=== PATIENT | female | born 1950 | race Caucasian/White ===

== ENCOUNTER 2023-03-19 10:21 | Outpatient (CLI) | payer SELFPAY ==
[2023-03-19 10:44] VITALS: BP 139/64; PULSE 96; RESP 16; TEMP 36.9; O2SAT 98; BMI 23.3
[2023-03-19 11:18] VITALS: BP 133/60; PULSE 93; RESP 16; TEMP 36.7; O2SAT 100
[2023-03-19 12:18] VITALS: BP 143/64; PULSE 87; RESP 16; TEMP 36.9; O2SAT 99
[2023-03-19 13:31] VITALS: BP 138/61; PULSE 87; RESP 16; TEMP 37.1
== END 2023-03-19 10:22 | disposition home or self-care (01) ==
PROVIDERS: PCP Student in an Organized Health Care Education/Training Program; Referring Provider Internal Medicine Hematology & Oncology; Visit Provider Internal Medicine Hematology & Oncology
DX: D64.9 Anemia, unspecified (principal)
CPT/HCPCS: 36430; 86850; 86870; 86900; 86901; 86902; J7040; P9016; A4216

== ENCOUNTER 2023-05-29 09:10 | Outpatient (CLI) | payer OTHER, SELFPAY ==
[2023-05-29] VITALS (7 sets, daily range): BP systolic 116–142; BP diastolic 49–59; PULSE 94–110; RESP 12–16; TEMP 36.2–36.3; O2SAT 95–99; BMI 23.2
[2023-05-29] MEDS: 0.9% NaCl Peripheral Flush Adult/Peds IV (09:40)
== END 2023-05-29 09:11 | disposition home or self-care (01) ==
LOC: MEDOUTP 09:15
PROVIDERS: PCP Student in an Organized Health Care Education/Training Program; Referring Provider Internal Medicine Hematology & Oncology; Visit Provider Internal Medicine Hematology & Oncology
DX: D46.20 Refractory anemia with excess of blasts, unspecified (principal)
CPT/HCPCS: 36430; 86850; 86870; 86900; 86901; 86902; 86905; 86920; 86922; J7040; P9016; A4216

== ENCOUNTER 2023-06-19 08:58 | Outpatient (CLI) | payer OTHER, SELFPAY ==
[2023-06-19] VITALS (7 sets, daily range): BP systolic 112–141; BP diastolic 50–58; PULSE 91–100; RESP 16; TEMP 36.5–36.8; O2SAT 99–100
[2023-06-19] MEDS: 0.9% NaCl Peripheral Flush Adult/Peds IV (09:50)
== END 2023-06-19 08:59 | disposition home or self-care (01) ==
LOC: MEDOUTP 08:59
PROVIDERS: PCP Student in an Organized Health Care Education/Training Program; Referring Provider Internal Medicine Hematology & Oncology; Visit Provider Internal Medicine Hematology & Oncology
DX: D46.20 Refractory anemia with excess of blasts, unspecified (principal)
CPT/HCPCS: 36430; 86850; 86870; 86900; 86901; 86902; 86920; 86922; J7040; P9016; A4216

== ENCOUNTER 2023-07-04 07:51 | Outpatient (CLI) | payer OTHER, SELFPAY ==
[2023-07-04] MEDS: 0.9% NaCl Peripheral Flush Adult/Peds IV (08:11)
[2023-07-04 08:12] VITALS: BP 145/50; PULSE 99; RESP 16; TEMP 36.9; O2SAT 98
[2023-07-04 09:02] VITALS: BP 107/44; PULSE 93; RESP 16; TEMP 36.7
[2023-07-04 10:02] VITALS: BP 118/47; PULSE 89; RESP 16; TEMP 36.6; O2SAT 98
[2023-07-04 10:55] VITALS: BP 112/46; PULSE 78; RESP 16; TEMP 36.9
[2023-07-04 11:55] VITALS: BP 115/48; PULSE 86; RESP 16; TEMP 36.8
[2023-07-04 12:34] VITALS: BP 126/50; PULSE 89; RESP 16; TEMP 37
== END 2023-07-04 07:52 | disposition home or self-care (01) ==
LOC: MEDOUTP 07:52
PROVIDERS: PCP Student in an Organized Health Care Education/Training Program; Referring Provider Internal Medicine Hematology & Oncology; Visit Provider Internal Medicine Hematology & Oncology
DX: D46.20 Refractory anemia with excess of blasts, unspecified (principal)
CPT/HCPCS: 36430; 86850; 86870; 86900; 86901; 86902; 86920; 86922; J7040; P9016; A4216

== ENCOUNTER 2023-07-11 07:55 | Outpatient (CLI) | payer OTHER, SELFPAY ==
[2023-07-11] VITALS (7 sets, daily range): BP systolic 115–143; BP diastolic 49–58; PULSE 75–104; RESP 16; TEMP 36–36.4; O2SAT 97–100; BMI 23.2
[2023-07-11] MEDS: 0.9% NaCl Peripheral Flush Adult/Peds IV (08:19)
== END 2023-07-11 07:56 | disposition home or self-care (01) ==
LOC: MEDOUTP 07:55
PROVIDERS: PCP Student in an Organized Health Care Education/Training Program; Referring Provider Internal Medicine Hematology & Oncology; Visit Provider Internal Medicine Hematology & Oncology
DX: D46.20 Refractory anemia with excess of blasts, unspecified (principal)
CPT/HCPCS: 36430; 86850; 86870; 86900; 86901; 86902; 86920; 86921; 86922; J7040; P9016; A4216

== ENCOUNTER 2023-07-24 08:30 | Outpatient (CLI) | payer OTHER, SELFPAY ==
[2023-07-24 09:05] VITALS: BP 116/50; PULSE 107; RESP 16; TEMP 36.6; O2SAT 98
[2023-07-24 09:39] VITALS: BP 123/46; PULSE 105; RESP 16; TEMP 36.8; O2SAT 99
[2023-07-24 10:44] VITALS: BP 118/53; PULSE 98; RESP 16; TEMP 36.3; O2SAT 100
[2023-07-24 11:49] VITALS: BP 128/49; PULSE 102; RESP 16; TEMP 36.6; O2SAT 98
[2023-07-24 12:49] VITALS: BP 115/50; PULSE 96; RESP 16; TEMP 36.8
== END 2023-07-24 08:31 | disposition home or self-care (01) ==
LOC: MEDOUTP 08:30
PROVIDERS: PCP Student in an Organized Health Care Education/Training Program; Referring Provider Internal Medicine Hematology & Oncology; Visit Provider Internal Medicine Hematology & Oncology
DX: D46.20 Refractory anemia with excess of blasts, unspecified (principal)
CPT/HCPCS: 36430; 86850; 86870; 86880; 86900; 86901; 86920; 86922; J7040; P9016; A4216

== ENCOUNTER 2023-08-01 08:24 | Outpatient (CLI) | payer OTHER, SELFPAY ==
[2023-08-01 08:31] VITALS: BP 149/48; PULSE 107; RESP 16; TEMP 36.7; O2SAT 99
[2023-08-01 09:30] VITALS: BP 114/56; PULSE 95; RESP 16; TEMP 36.6; O2SAT 99
[2023-08-01 10:30] VITALS: BP 123/57; PULSE 94; RESP 16; TEMP 36.6; O2SAT 98
[2023-08-01 10:59] VITALS: BP 128/62; PULSE 95; RESP 16; TEMP 36.5; O2SAT 100
[2023-08-01 11:24] VITALS: BP 130/56; PULSE 91; RESP 16; TEMP 36.8
[2023-08-01 12:39] VITALS: BP 129/55; PULSE 94; RESP 16; TEMP 36.6; O2SAT 99
== END 2023-08-01 08:25 | disposition home or self-care (01) ==
LOC: MEDOUTP 08:24
PROVIDERS: PCP Student in an Organized Health Care Education/Training Program; Referring Provider Internal Medicine Hematology & Oncology; Visit Provider Internal Medicine Hematology & Oncology
DX: D46.20 Refractory anemia with excess of blasts, unspecified (principal)
CPT/HCPCS: 36430; 86850; 86870; 86900; 86901; 86902; 86920; 86922; J7040; P9016; A4216

== ENCOUNTER 2023-08-21 09:06 | Outpatient (CLI) | payer OTHER, SELFPAY ==
[2023-08-21 09:29] VITALS: BP 114/48; PULSE 108; RESP 16; TEMP 36.2; O2SAT 98; BMI 23.2
[2023-08-21 09:55] VITALS: BP 110/46; PULSE 105; RESP 16; TEMP 36.2
[2023-08-21 10:55] VITALS: BP 118/54; PULSE 99; RESP 16; TEMP 36.1; O2SAT 99
[2023-08-21 12:00] VITALS: BP 118/60; PULSE 94; RESP 16; TEMP 36.2
[2023-08-21 13:00] VITALS: BP 121/51; PULSE 96; RESP 16; TEMP 36.3
[2023-08-21 14:08] VITALS: BP 114/59; PULSE 96; RESP 16; TEMP 36.2; O2SAT 98
== END 2023-08-21 09:07 | disposition home or self-care (01) ==
LOC: MEDOUTP 09:06
PROVIDERS: PCP Student in an Organized Health Care Education/Training Program; Referring Provider Internal Medicine Hematology & Oncology; Visit Provider Internal Medicine Hematology & Oncology
DX: D46.20 Refractory anemia with excess of blasts, unspecified (principal)
CPT/HCPCS: 36430; 86850; 86870; 86900; 86901; 86902; J7040; P9016; A4216

== ENCOUNTER 2023-08-30 08:16 | Outpatient (CLI) | payer OTHER, SELFPAY ==
[2023-08-30 08:39] VITALS: BP 128/56; PULSE 110; RESP 16; TEMP 36.4; O2SAT 100; BMI 23.2
[2023-08-30] MEDS: 0.9% Normal Saline (500mL Bag) 500 ML 15 ML IV (09:00)
[2023-08-30 09:15] VITALS: BP 108/42; PULSE 102; RESP 16; TEMP 36.3; O2SAT 100
[2023-08-30 10:15] VITALS: BP 108/49; PULSE 92; RESP 16; TEMP 36.1; O2SAT 100
[2023-08-30 11:13] VITALS: BP 117/55; PULSE 88; RESP 16; TEMP 36.1; O2SAT 99
[2023-08-30 12:24] VITALS: BP 124/58; PULSE 88; RESP 16; TEMP 36.2
[2023-08-30] MEDS: 0.9% NaCl Peripheral Flush Adult/Peds IV (12:25)
--- NOTE | 2023-08-30 12:38 | CASEMGMT ---
Outpatient Ratings Analyst Sw met with patient briefly during treatment. Sw introduced self and explained sw role. Sw provided patient with information and education regarding feeling overwhelmed. Sw reviewed list of appropriate coping skills for patient to utilize. Patient was appreciative and receptive of information and support provided. Dyana Harkins, TEST ARCHITECT, EDM OPERATOR
== END 2023-08-30 08:17 | disposition home or self-care (01) ==
PROVIDERS: PCP Student in an Organized Health Care Education/Training Program; Visit Provider Internal Medicine Hematology & Oncology
DX: D46.20 Refractory anemia with excess of blasts, unspecified (principal)
CPT/HCPCS: 36430; 86850; 86870; 86900; 86901; 86920; 86922; J7040; P9016; A4216

== ENCOUNTER 2023-09-06 08:45 | Outpatient (CLI) | payer OTHER, SELFPAY ==
[2023-09-06] VITALS (7 sets, daily range): BP systolic 105–121; BP diastolic 45–56; PULSE 73–101; RESP 16; TEMP 36.2–36.8; O2SAT 99–100; BMI 23.2
== END 2023-09-06 08:46 | disposition home or self-care (01) ==
PROVIDERS: PCP Student in an Organized Health Care Education/Training Program; Referring Provider Internal Medicine Hematology & Oncology; Visit Provider Internal Medicine Hematology & Oncology
DX: D46.20 Refractory anemia with excess of blasts, unspecified (principal)
CPT/HCPCS: 36430; 86850; 86870; 86900; 86901; 86902; 86920; 86922; J7040; P9016; A4216

== ENCOUNTER 2023-09-18 10:08 | Outpatient (CLI) | payer OTHER, SELFPAY ==
[2023-09-18 10:32] VITALS: BP 113/52; PULSE 100; RESP 16; TEMP 36.3; O2SAT 100; BMI 23.2
[2023-09-18] MEDS: 0.9% Normal Saline (500mL Bag) 500 ML 15 ML IV (10:35)
[2023-09-18] MEDS: 0.9% NaCl Peripheral Flush Adult/Peds IV (10:35)
[2023-09-18 11:23] VITALS: BP 112/50; PULSE 91; RESP 16; TEMP 36.2; O2SAT 98
[2023-09-18 12:15] VITALS: BP 147/66; PULSE 92; RESP 16; TEMP 36.6; O2SAT 99
[2023-09-18 12:53] VITALS: BP 125/74; PULSE 78; RESP 16; TEMP 36.6; O2SAT 99
== END 2023-09-18 10:09 | disposition home or self-care (01) ==
LOC: MEDOUTP 10:08
PROVIDERS: PCP Student in an Organized Health Care Education/Training Program; Referring Provider Internal Medicine Hematology & Oncology; Visit Provider Internal Medicine Hematology & Oncology
DX: D46.20 Refractory anemia with excess of blasts, unspecified (principal)
CPT/HCPCS: 36430; 86850; 86870; 86900; 86901; 86902; 86920; 86922; J7040; P9016; A4216

== ENCOUNTER 2023-09-27 08:29 | Outpatient (CLI) | payer OTHER, SELFPAY ==
[2023-09-27] VITALS (7 sets, daily range): BP systolic 108–133; BP diastolic 54–65; PULSE 90–108; RESP 16; TEMP 36.3–36.6; O2SAT 98–100; BMI 23.2
== END 2023-09-27 08:30 | disposition home or self-care (01) ==
LOC: MEDOUTP 08:29
PROVIDERS: PCP Student in an Organized Health Care Education/Training Program; Referring Provider Internal Medicine Hematology & Oncology; Visit Provider Internal Medicine Hematology & Oncology
DX: D46.20 Refractory anemia with excess of blasts, unspecified (principal)
CPT/HCPCS: 36430; 86850; 86870; 86900; 86901; 86902; 86920; 86921; 86922; J7040; P9016; A4216

== ENCOUNTER 2023-10-08 11:52 | Outpatient (CLI) | payer OTHER, SELFPAY ==
[2023-10-08] MEDS: 0.9% Normal Saline (500mL Bag) 500 ML 15 ML IV (12:13)
[2023-10-08] MEDS: 0.9% NaCl Peripheral Flush Adult/Peds IV (12:13)
[2023-10-08 12:37] VITALS: BP 120/60; PULSE 100; RESP 16; TEMP 36.3; O2SAT 99
[2023-10-08 13:08] VITALS: BP 128/68; PULSE 100; RESP 12; TEMP 36.5; O2SAT 100
[2023-10-08 14:10] VITALS: BP 125/55; PULSE 99; RESP 14; TEMP 36.3; O2SAT 99
[2023-10-08 14:50] VITALS: BP 130/71; PULSE 93; RESP 16; TEMP 36.7; O2SAT 99
== END 2023-10-08 11:53 | disposition home or self-care (01) ==
LOC: MEDOUTP 11:53
PROVIDERS: PCP Student in an Organized Health Care Education/Training Program; Referring Provider Internal Medicine Hematology & Oncology; Visit Provider Internal Medicine Hematology & Oncology
DX: D46.20 Refractory anemia with excess of blasts, unspecified (principal)
CPT/HCPCS: 36430; 86850; 86870; 86900; 86901; 86902; 86920; 86922; J7040; P9016; A4216

== ENCOUNTER 2023-10-16 10:29 | Outpatient (CLI) | payer OTHER, SELFPAY ==
[2023-10-16 10:54] VITALS: BP 129/56; PULSE 105; RESP 16; TEMP 36.2; O2SAT 100; BMI 23.3
[2023-10-16 11:33] VITALS: BP 121/50; PULSE 102; RESP 16; TEMP 36.5; O2SAT 100
[2023-10-16] MEDS: 0.9% NaCl Peripheral Flush Adult/Peds IV (11:34)
[2023-10-16] MEDS: 0.9% Normal Saline (500mL Bag) 500 ML 15 ML IV (11:34)
[2023-10-16 12:29] VITALS: BP 126/59; PULSE 102; RESP 16; TEMP 36.4
[2023-10-16 12:53] VITALS: BP 122/62; PULSE 98; RESP 16; TEMP 36.4; O2SAT 100
== END 2023-10-16 10:30 | disposition home or self-care (01) ==
LOC: MEDOUTP 10:29
PROVIDERS: PCP Student in an Organized Health Care Education/Training Program; Referring Provider Internal Medicine Hematology & Oncology; Visit Provider Internal Medicine Hematology & Oncology
DX: D46.20 Refractory anemia with excess of blasts, unspecified (principal)
CPT/HCPCS: 36430; 86644; 86850; 86870; 86880; 86900; 86901; 86902; 86920; 86922; J7040; P9016; A4216

== ENCOUNTER 2023-10-23 09:45 | Outpatient (CLI) | payer OTHER, SELFPAY ==
[2023-10-23] VITALS (7 sets, daily range): BP systolic 115–141; BP diastolic 43–55; PULSE 95–107; RESP 16; TEMP 36.5–36.7; O2SAT 97–100; BMI 23.2
== END 2023-10-23 09:46 | disposition home or self-care (01) ==
LOC: MEDOUTP 09:45
PROVIDERS: PCP Student in an Organized Health Care Education/Training Program; Visit Provider Internal Medicine Hematology & Oncology
DX: D46.20 Refractory anemia with excess of blasts, unspecified (principal)
CPT/HCPCS: 36430; 86850; 86870; 86900; 86901; 86902; 86920; 86922; J7040; P9016; A4216

== ENCOUNTER 2023-11-13 11:15 | Outpatient (CLI) | payer OTHER, SELFPAY ==
[2023-11-13 11:31] VITALS: BP 146/64; PULSE 105; RESP 16; TEMP 36.5; O2SAT 95; BMI 23.0
[2023-11-13 11:58] VITALS: BP 132/68; PULSE 99; RESP 16; TEMP 36.6; O2SAT 98
[2023-11-13 12:58] VITALS: BP 141/66; PULSE 96; RESP 16; TEMP 36.5
[2023-11-13 14:00] VITALS: BP 141/66; PULSE 90; RESP 16
== END 2023-11-13 11:16 | disposition home or self-care (01) ==
LOC: MEDOUTP 11:15
PROVIDERS: PCP Student in an Organized Health Care Education/Training Program; Referring Provider Internal Medicine Hematology & Oncology; Visit Provider Internal Medicine Hematology & Oncology
DX: D46.20 Refractory anemia with excess of blasts, unspecified (principal)
CPT/HCPCS: 36430; 86850; 86870; 86900; 86901; 86902; 86920; 86922; J7040; P9016; A4216

== ENCOUNTER 2023-11-27 11:59 | Outpatient (CLI) | payer OTHER, SELFPAY ==
[2023-11-27] MEDS: 0.9% Normal Saline (500mL Bag) 500 ML 15 ML IV (12:18)
[2023-11-27] MEDS: 0.9% NaCl Peripheral Flush Adult/Peds IV (12:18)
[2023-11-27 12:26] VITALS: BP 126/57; PULSE 105; RESP 16; TEMP 36.6; O2SAT 99; BMI 23.2
[2023-11-27 13:03] VITALS: BP 135/66; PULSE 100; RESP 16; TEMP 37.2; O2SAT 99
[2023-11-27 14:03] VITALS: BP 151/62; PULSE 93; RESP 16; TEMP 37.2
== END 2023-11-27 12:00 | disposition home or self-care (01) ==
LOC: MEDOUTP 12:00
PROVIDERS: PCP Student in an Organized Health Care Education/Training Program; Referring Provider Internal Medicine Hematology & Oncology; Visit Provider Internal Medicine Hematology & Oncology
DX: D46.20 Refractory anemia with excess of blasts, unspecified (principal)
CPT/HCPCS: 36430; 86850; 86870; 86900; 86901; 86902; 86920; 86922; J7040; P9016; A4216

== ENCOUNTER → 2024-07-03 | Outpatient (CLI) | payer OTHER, SELFPAY | END | disposition home or self-care (01) | LOC: LABSPEC 01-21 15:42 | PROVIDERS: PCP Student in an Organized Health Care Education/Training Program; Referring Provider Internal Medicine Hematology & Oncology; Visit Provider Internal Medicine Hematology & Oncology | DX: D46.20 Refractory anemia with excess of blasts, unspecified (principal) | CPT/HCPCS: 86850; 86870; 86900; 86901; 86902; 86920; 86922 ==

== ENCOUNTER 2024-07-14 11:26 | Outpatient (CLI) | payer SELFPAY ==
[2024-07-14 11:53] VITALS: BP 165/62; PULSE 109; RESP 16; TEMP 36.2; O2SAT 99; BMI 24.1
[2024-07-14 12:27] VITALS: BP 140/60; PULSE 92; RESP 16; TEMP 36.1; O2SAT 99
[2024-07-14 13:27] VITALS: BP 145/60; PULSE 79; RESP 16; TEMP 36.1; O2SAT 100
[2024-07-14 14:01] VITALS: BP 142/61; PULSE 83; RESP 16; TEMP 36.1; O2SAT 99
== END 2024-07-14 23:59 | disposition home or self-care (01) ==
PROVIDERS: PCP Student in an Organized Health Care Education/Training Program; Referring Provider Internal Medicine Hematology & Oncology; Visit Provider Internal Medicine Hematology & Oncology
DX: D46.20 Refractory anemia with excess of blasts, unspecified (principal)
CPT/HCPCS: 36430; 86850; 86870; 86900; 86901; J7040; P9016; A4216

== ENCOUNTER 2024-09-08 11:08 | Outpatient (CLI) | payer SELFPAY ==
[2024-09-08] MEDS: 0.9% NaCl Peripheral Flush Adult/Peds IV (11:22)
[2024-09-08 11:33] VITALS: BP 131/62; PULSE 107; RESP 16; TEMP 36.2; O2SAT 98; BMI 24.3
[2024-09-08 12:04] VITALS: BP 128/54; PULSE 97; RESP 16; TEMP 36.3; O2SAT 99
[2024-09-08 13:30] VITALS: BP 130/60; PULSE 87; RESP 16; TEMP 36.6; O2SAT 99
== END 2024-09-08 23:59 | disposition home or self-care (01) ==
LOC: MEDOUTP 11:10
PROVIDERS: PCP Student in an Organized Health Care Education/Training Program; Referring Provider Internal Medicine Hematology & Oncology; Visit Provider Internal Medicine Hematology & Oncology
DX: D46.20 Refractory anemia with excess of blasts, unspecified (principal)
CPT/HCPCS: 36430; 86850; 86870; 86900; 86901; 86902; 86920; 86922; P9016; A4216

== ENCOUNTER 2024-09-29 07:54 | Outpatient (CLI) | payer SELFPAY ==
[2024-09-29 08:10] VITALS: BP 138/54; PULSE 107; RESP 16; TEMP 35.9; O2SAT 100; BMI 24.8
[2024-09-29 08:54] VITALS: BP 127/53; PULSE 98; RESP 16; TEMP 36.3; O2SAT 100
[2024-09-29 09:54] VITALS: BP 133/57; PULSE 97; RESP 16; TEMP 36.2
[2024-09-29 10:26] VITALS: BP 138/54; PULSE 93; RESP 16; TEMP 36.2; O2SAT 100
== END 2024-09-29 23:59 | disposition home or self-care (01) ==
PROVIDERS: PCP Student in an Organized Health Care Education/Training Program; Referring Provider Internal Medicine Hematology & Oncology; Visit Provider Internal Medicine Hematology & Oncology
DX: D46.20 Refractory anemia with excess of blasts, unspecified (principal)
CPT/HCPCS: 36430; 86644; 86850; 86870; 86900; 86901; 86902; 86920; 86921; 86922; J7050; P9016; A4216

== ENCOUNTER 2024-10-20 11:28 | Outpatient (CLI) | payer SELFPAY ==
[2024-10-20] MEDS: 0.9% NaCl Peripheral Flush Adult/Peds IV (11:35)
[2024-10-20 12:07] VITALS: BP 123/55; PULSE 108; RESP 16; TEMP 36.2; O2SAT 98; BMI 24.8
[2024-10-20 12:36] VITALS: BP 124/54; PULSE 99; RESP 16; TEMP 36.4; O2SAT 98
[2024-10-20 13:36] VITALS: BP 134/68; PULSE 101; RESP 16; TEMP 36.4; O2SAT 100
[2024-10-20 14:31] VITALS: BP 135/67; PULSE 99; RESP 16; TEMP 36.6
== END 2024-10-20 23:59 | disposition home or self-care (01) ==
PROVIDERS: PCP Student in an Organized Health Care Education/Training Program; Referring Provider Internal Medicine Hematology & Oncology; Visit Provider Internal Medicine Hematology & Oncology
DX: D46.20 Refractory anemia with excess of blasts, unspecified (principal)
CPT/HCPCS: 36430; 86850; 86870; 86900; 86901; 86902; 86920; 86922; P9016; A4216

== ENCOUNTER 2024-11-03 11:03 | Outpatient (CLI) | payer SELFPAY ==
[2024-11-03 11:24] VITALS: BP 130/55; PULSE 104; RESP 14; TEMP 36.6; O2SAT 97; BMI 25.2
[2024-11-03 11:50] VITALS: BP 132/58; PULSE 103; RESP 16; TEMP 36.4
[2024-11-03 12:50] VITALS: BP 141/62; PULSE 92; RESP 16; TEMP 36.6; O2SAT 98
== END 2024-11-03 23:59 | disposition home or self-care (01) ==
LOC: MEDOUTP 11:03
PROVIDERS: PCP Student in an Organized Health Care Education/Training Program; Referring Provider Internal Medicine Hematology & Oncology; Visit Provider Internal Medicine Hematology & Oncology
DX: D46.20 Refractory anemia with excess of blasts, unspecified (principal)
CPT/HCPCS: 36430; 86644; 86850; 86900; 86901; 86902; 86920; 86922; P9016; A4216

== ENCOUNTER 2024-12-01 10:00 | Outpatient (CLI) | payer SELFPAY ==
[2024-12-01 10:06] VITALS: BP 147/51; PULSE 106; RESP 16; TEMP 36.3; O2SAT 100; BMI 24.1
[2024-12-01 10:45] VITALS: BP 123/49; PULSE 97; RESP 16; TEMP 36.6; O2SAT 98
[2024-12-01 11:42] VITALS: BP 132/56; PULSE 95; RESP 16; TEMP 36.7; O2SAT 98
[2024-12-01 12:23] VITALS: BP 126/50; PULSE 96; RESP 16; TEMP 36.6; O2SAT 100
== END 2024-12-01 23:59 | disposition home or self-care (01) ==
LOC: MEDOUTP 10:00
PROVIDERS: PCP Student in an Organized Health Care Education/Training Program; Referring Provider Internal Medicine Hematology & Oncology; Visit Provider Internal Medicine Hematology & Oncology
DX: D46.20 Refractory anemia with excess of blasts, unspecified (principal)
CPT/HCPCS: 36430; 86850; 86900; 86901; 86902; 86920; 86922; P9016; A4216

== ENCOUNTER → 2024-12-29 | Outpatient (CLI) | payer SELFPAY | END | disposition home or self-care (01) | LOC: LABSPEC 12:28 | PROVIDERS: PCP Student in an Organized Health Care Education/Training Program; Referring Provider Internal Medicine Hematology & Oncology; Visit Provider Internal Medicine Hematology & Oncology | DX: D46.20 Refractory anemia with excess of blasts, unspecified (principal) | CPT/HCPCS: 86850; 86900; 86901; 86902; 86920; 86922 ==

== ENCOUNTER 2024-12-30 09:34 | Outpatient (CLI) | payer SELFPAY ==
[2024-12-30 09:47] VITALS: BP 156/59; PULSE 109; RESP 16; TEMP 36; O2SAT 100; BMI 24.3
[2024-12-30 10:19] VITALS: BP 116/53; PULSE 98; RESP 16; TEMP 36.1
[2024-12-30 11:33] VITALS: BP 151/64; PULSE 102; RESP 16; TEMP 35.8
== END 2024-12-30 23:59 | disposition home or self-care (01) ==
LOC: MEDOUTP 09:35
PROVIDERS: PCP Student in an Organized Health Care Education/Training Program; Referring Provider Internal Medicine Hematology & Oncology; Visit Provider Internal Medicine Hematology & Oncology
DX: D46.20 Refractory anemia with excess of blasts, unspecified (principal)
CPT/HCPCS: 36430; 86850; 86900; 86901; 86902; 86920; 86922; P9016; A4216

== ENCOUNTER 2025-02-02 08:55 | Outpatient (CLI) | payer SELFPAY ==
[2025-02-02 09:14] VITALS: BP 122/52; PULSE 107; RESP 14; TEMP 36.6; O2SAT 100; BMI 24.5
[2025-02-02 09:29] VITALS: BP 116/47; PULSE 97; RESP 16; TEMP 36.4; O2SAT 98
[2025-02-02 10:40] VITALS: BP 122/53; PULSE 87; RESP 14; TEMP 36.4; O2SAT 96
[2025-02-02 11:27] VITALS: BP 128/54; PULSE 94; RESP 16; TEMP 36.3
[2025-02-02 12:27] VITALS: BP 129/51; PULSE 93; RESP 16; TEMP 36.5
[2025-02-02 13:02] VITALS: BP 128/56; PULSE 80; RESP 16; TEMP 36.5
== END 2025-02-02 23:59 | disposition home or self-care (01) ==
LOC: MEDOUTP 08:55
PROVIDERS: PCP Student in an Organized Health Care Education/Training Program; Referring Provider Internal Medicine Hematology & Oncology; Visit Provider Internal Medicine Hematology & Oncology
DX: D46.20 Refractory anemia with excess of blasts, unspecified (principal)
CPT/HCPCS: 36430; 86850; 86900; 86901; 86902; 86920; 86922; P9016; A4216

== ENCOUNTER 2025-03-09 11:01 | Outpatient (CLI) | payer SELFPAY ==
[2025-03-09 11:50] VITALS: BP 128/55; PULSE 92; RESP 14; TEMP 36.6; O2SAT 98; BMI 25.0
[2025-03-09 12:10] VITALS: BP 140/71; PULSE 99; RESP 16; TEMP 36.9; O2SAT 100
[2025-03-09 13:15] VITALS: BP 128/53; PULSE 92; RESP 14; TEMP 36.5; O2SAT 99
[2025-03-09 13:50] VITALS: BP 128/61; PULSE 89; RESP 14; TEMP 36.2; O2SAT 98
== END 2025-03-09 23:59 | disposition home or self-care (01) ==
LOC: MEDOUTP 11:01
PROVIDERS: PCP Student in an Organized Health Care Education/Training Program; Referring Provider Internal Medicine Hematology & Oncology; Visit Provider Internal Medicine Hematology & Oncology
DX: D46.20 Refractory anemia with excess of blasts, unspecified (principal)
CPT/HCPCS: 36430; 86850; 86900; 86901; 86902; 86920; 86922; P9016; A4216

== ENCOUNTER 2025-04-02 11:24 | Outpatient (CLI) | payer SELFPAY ==
[2025-04-02 11:35] VITALS: BP 136/56; PULSE 103; RESP 16; TEMP 36.2; O2SAT 99; BMI 24.5
[2025-04-02] MEDS: 0.9% NaCl Peripheral Flush Adult IV (11:45)
[2025-04-02 12:13] VITALS: BP 136/63; PULSE 96; RESP 16; TEMP 36.2; O2SAT 99
[2025-04-02 13:13] VITALS: BP 130/57; PULSE 91; RESP 16; TEMP 36; O2SAT 99
[2025-04-02 14:04] VITALS: BP 131/52; PULSE 94; RESP 16; TEMP 35.8; O2SAT 98
== END 2025-04-02 23:59 | disposition home or self-care (01) ==
PROVIDERS: PCP Student in an Organized Health Care Education/Training Program; Referring Provider Internal Medicine Hematology & Oncology; Visit Provider Internal Medicine Hematology & Oncology
DX: D46.20 Refractory anemia with excess of blasts, unspecified (principal)
CPT/HCPCS: 36430; 86850; 86900; 86901; 86902; 86920; 86922; P9016; A4216

== ENCOUNTER 2025-09-08 09:02 | Outpatient (CLI) | payer SELFPAY ==
[2025-09-08 09:26] VITALS: BP 117/51; PULSE 99; RESP 16; TEMP 36.3; O2SAT 99; BMI 22.6
[2025-09-08 09:57] VITALS: BP 105/43; PULSE 90; RESP 16; TEMP 36.5
[2025-09-08 10:58] VITALS: BP 114/52; PULSE 93; RESP 16; TEMP 36.4; O2SAT 98
[2025-09-08 11:07] VITALS: BP 118/53; PULSE 85; RESP 16; TEMP 36.2; O2SAT 99
[2025-09-08 12:05] VITALS: BP 125/58; PULSE 89; RESP 16; TEMP 36.5; O2SAT 99
[2025-09-08 13:05] VITALS: BP 124/56; PULSE 86; RESP 16; TEMP 36.3; O2SAT 99
== END 2025-09-08 23:59 | disposition home or self-care (01) ==
LOC: MEDOUTP 09:02
PROVIDERS: PCP Student in an Organized Health Care Education/Training Program; Referring Provider Specialist; Visit Provider Specialist
DX: D64.9 Anemia, unspecified (principal)
CPT/HCPCS: 36415; 36430; 86850; 86900; 86901; 86902; 86920; 86922; P9016; A4216

== ENCOUNTER 2025-09-21 08:09 | Outpatient (CLI) | payer SELFPAY ==
[2025-09-21 08:39] VITALS: BP 88/55; PULSE 110; RESP 16; TEMP 35.9; O2SAT 98; BMI 22.4
[2025-09-21 09:22] VITALS: BP 105/39; PULSE 94; RESP 16; TEMP 36.1; O2SAT 100
[2025-09-21 10:22] VITALS: BP 116/49; PULSE 88; RESP 16; TEMP 36.2; O2SAT 98
[2025-09-21 11:32] VITALS: BP 118/52; PULSE 95; RESP 16; TEMP 35.9
[2025-09-21 12:32] VITALS: BP 110/59; PULSE 92; RESP 16; TEMP 36.4; O2SAT 99
[2025-09-21 13:17] VITALS: BP 120/50; PULSE 93; RESP 16; TEMP 36.1; O2SAT 100
== END 2025-09-21 23:59 | disposition home or self-care (01) ==
PROVIDERS: PCP Student in an Organized Health Care Education/Training Program; Referring Provider Specialist; Visit Provider Specialist
DX: D50.8 Other iron deficiency anemias (principal); D46.9 Myelodysplastic syndrome, unspecified
CPT/HCPCS: 36430; 86850; 86870; 86900; 86901; 86902; 86920; 86922; P9016; A4216

== ENCOUNTER 2025-10-05 09:18 | Outpatient (CLI) | payer SELFPAY ==
[2025-10-05] VITALS (8 sets, daily range): BP systolic 99–139; BP diastolic 29–62; PULSE 77–100; RESP 16–18; TEMP 36–36.6; O2SAT 99–100; BMI 22.3
== END 2025-10-05 23:59 | disposition home or self-care (01) ==
LOC: MEDOUTP 09:18
PROVIDERS: PCP Student in an Organized Health Care Education/Training Program; Referring Provider Specialist; Visit Provider Specialist
DX: D64.9 Anemia, unspecified (principal)
CPT/HCPCS: 36430; 86850; 86900; 86901; 86902; 86920; 86922; P9016; A4216

== ENCOUNTER → 2025-10-13 | Outpatient (CLI) | payer SELFPAY ==
[2025-10-13 13:00] LABS: Hematocrit 18.8 % (37-47); Hemoglobin 6.1 g/dL (12.0-15.0); Immature Granulocytes Count 0.000 X10^3/uL (0.0-0.0); Mean Corp Hgb Conc 32.4 g/dL (32-36); Mean Corpuscular Volume 93.5 fL (81-99); Mean Platelet Vol. 11.4 fl (6.2-12.0); NRBC Flagged by Analyzer 0 % (0-5); POSITIVE COUNT YES; POSITIVE DIFFERENTIAL YES; POSITIVE MORPHOLOGY YES; RBC Distribution Width CV 14.6 % (11.6-14.6); RBC Distribution Width SD 48.6 fl (35.1-43.9); Red Blood Count 2.01 M/mm3 (4.2-5.4)
[2025-10-13 13:09] LABS: White Blood Count 0.6 K/mm3 (4.4-11.0)
[2025-10-13 13:10] LABS: Differential Indicated SCAN CRITERIA MET; Platelet Count 44 K/mm3 (150-450)
[2025-10-13 13:43] LABS: Differential Comment SCANNED
[2025-10-13 20:57] LABS: Xtra CC BBK (Onc ONLY) EXTRA TUBE
== END | disposition home or self-care (01) ==
PROVIDERS: PCP Student in an Organized Health Care Education/Training Program; Referring Provider Specialist; Visit Provider Specialist
DX: D46.9 Myelodysplastic syndrome, unspecified (principal); D50.8 Other iron deficiency anemias
CPT/HCPCS: 36415; 85025

== ENCOUNTER 2025-10-14 09:55 | Outpatient (CLI) | payer SELFPAY ==
[2025-10-14 10:08] VITALS: BP 142/57; PULSE 105; RESP 16; TEMP 36.2; O2SAT 98
[2025-10-14 11:01] VITALS: BP 111/48; PULSE 96; RESP 16; TEMP 36.3; O2SAT 100
[2025-10-14 12:01] VITALS: BP 118/51; PULSE 105; RESP 16; TEMP 36.6; O2SAT 100
[2025-10-14 12:47] VITALS: BP 114/53; PULSE 94; RESP 16; TEMP 36.4; O2SAT 100
[2025-10-14 13:58] VITALS: BP 122/54; PULSE 94; RESP 16; TEMP 36.5
== END 2025-10-14 23:59 | disposition home or self-care (01) ==
LOC: MEDOUTP 09:55
PROVIDERS: PCP Student in an Organized Health Care Education/Training Program; Referring Provider Specialist; Visit Provider Specialist
DX: D46.9 Myelodysplastic syndrome, unspecified (principal); D50.8 Other iron deficiency anemias
CPT/HCPCS: 36430; 86850; 86900; 86901; 86902; 86920; 86922; P9016; A4216

== ENCOUNTER 2025-10-25 08:45 | Outpatient (CLI) | payer SELFPAY ==
[2025-10-21 11:35] LABS: Hematocrit 21.3 % (37-47); Hemoglobin 6.8 g/dL (12.0-15.0); Mean Corp Hgb Conc 31.9 g/dL (32-36); Mean Corpuscular Volume 93.4 fL (81-99); Mean Platelet Vol. 11.5 fl (6.2-12.0); POSITIVE COUNT YES; POSITIVE DIFFERENTIAL YES; POSITIVE MORPHOLOGY YES; RBC Distribution Width CV 13.8 % (11.6-14.6); RBC Distribution Width SD 46.5 fl (35.1-43.9); Red Blood Count 2.28 M/mm3 (4.2-5.4)
[2025-10-21 11:49] LABS: Differential Indicated MANUAL DIFF; Platelet Count 32 K/mm3 (150-450); White Blood Count 0.6 K/mm3 (4.4-11.0)
[2025-10-21 12:59] LABS: Neutrophil-Band 4 % (0-5); Neutrophil-Segmented 20 % (47-70); Red Cell Morphology NORM C+C NORMAL (NORM C&C); Total Cells Counted 25 (MANUAL DIFF)
[2025-10-21 19:30] LABS: Xtra CC BBK (Onc ONLY) EXTRA TUBE
[2025-10-23 11:06] LABS: Hematocrit 20.4 % (37-47); Hemoglobin 6.6 g/dL (12.0-15.0); Immature Granulocytes Count 0.010 X10^3/uL (0.0-0.0); Mean Corp Hgb Conc 32.4 g/dL (32-36); Mean Corpuscular Volume 92.3 fL (81-99); Mean Platelet Vol. 11.1 fl (6.2-12.0); NRBC Flagged by Analyzer 0 % (0-5); POSITIVE COUNT YES; POSITIVE DIFFERENTIAL YES; POSITIVE MORPHOLOGY YES; Platelet Count 39 K/mm3 (150-450); RBC Distribution Width CV 13.8 % (11.6-14.6); RBC Distribution Width SD 45.2 fl (35.1-43.9); Red Blood Count 2.21 M/mm3 (4.2-5.4); White Blood Count 1.0 K/mm3 (4.4-11.0)
[2025-10-23 11:07] LABS: Differential Indicated SCAN CRITERIA MET
[2025-10-23 12:10] LABS: Differential Comment SCANNED
[2025-10-23 12:11] LABS: Acanthocytes RARE; Anisocytosis 1+; Bite Cell RARE
[2025-10-23 18:44] LABS: Xtra CC BBK (Onc ONLY) EXTRA TUBE
[2025-10-25 08:59] VITALS: BP 144/67; PULSE 99; RESP 16; TEMP 35.5; O2SAT 100; BMI 21.9
[2025-10-25 09:42] VITALS: BP 112/63; PULSE 97; RESP 16; TEMP 36.2; O2SAT 100
[2025-10-25 10:50] VITALS: BP 124/66; PULSE 96; RESP 16; TEMP 36.1; O2SAT 100
[2025-10-25 11:33] VITALS: BP 137/72; PULSE 92; RESP 16; TEMP 36.1; O2SAT 100
[2025-10-25 12:52] VITALS: BP 130/68; PULSE 88; RESP 16; TEMP 35.9; O2SAT 100
== END 2025-10-25 23:59 | disposition home or self-care (01) ==
LOC: MEDOUTP 08:45
PROVIDERS: PCP Student in an Organized Health Care Education/Training Program; Referring Provider Specialist; Visit Provider Specialist
DX: D46.9 Myelodysplastic syndrome, unspecified (principal); D50.8 Other iron deficiency anemias
CPT/HCPCS: 36415; 36430; 85025; 86644; 86850; 86900; 86901; 86902; 86920; 86922; P9016; A4216

== ENCOUNTER 2025-11-02 08:02 | Outpatient (CLI) | payer SELFPAY ==
[2025-11-01 11:19] LABS: Hematocrit 21.4 % (37-47); Hemoglobin 7.1 g/dL (12.0-15.0); Immature Granulocytes Count 0.010 X10^3/uL (0.0-0.0); Mean Corp Hgb Conc 33.2 g/dL (32-36); Mean Corpuscular Volume 91.1 fL (81-99); Mean Platelet Vol. 12.7 fl (6.2-12.0); NRBC Flagged by Analyzer 0 % (0-5); POSITIVE COUNT YES; POSITIVE DIFFERENTIAL YES; POSITIVE MORPHOLOGY YES; Platelet Count 6 K/mm3 (150-450); RBC Distribution Width CV 13.7 % (11.6-14.6); RBC Distribution Width SD 44.6 fl (35.1-43.9); Red Blood Count 2.35 M/mm3 (4.2-5.4); White Blood Count 0.9 K/mm3 (4.4-11.0)
[2025-11-01 11:27] LABS: Differential Indicated SCAN CRITERIA MET
[2025-11-01 19:06] LABS: Xtra CC BBK (Onc ONLY) EXTRA TUBE
[2025-11-02 08:17] VITALS: BP 148/61; PULSE 108; RESP 16; TEMP 36.2; O2SAT 99; BMI 21.9
[2025-11-02 08:43] VITALS: BP 117/60; PULSE 94; RESP 16; TEMP 36.6; O2SAT 99
[2025-11-02 09:43] VITALS: BP 129/64; PULSE 84; RESP 16; TEMP 36.5; O2SAT 99
[2025-11-02 10:59] VITALS: BP 127/55; PULSE 85; RESP 16; TEMP 36.3
[2025-11-02 11:59] VITALS: BP 127/67; PULSE 85; RESP 16; TEMP 36.6; O2SAT 98
[2025-11-02 12:54] VITALS: BP 125/60; PULSE 84; RESP 16
== END 2025-11-02 23:59 | disposition home or self-care (01) ==
LOC: MEDOUTP 08:02
PROVIDERS: PCP Student in an Organized Health Care Education/Training Program; Referring Provider Specialist; Visit Provider Specialist
DX: D46.9 Myelodysplastic syndrome, unspecified (principal); D50.8 Other iron deficiency anemias
CPT/HCPCS: 36415; 36430; 85025; 86850; 86900; 86901; 86902; 86920; 86922; P9016; A4216